=== PATIENT | male | born 1975 | race Caucasian/White ===

== ENCOUNTER 2025-08-24 04:07 | Emergency (ER) | payer BC, SELFPAY ==
[2025-08-24 04:10] VITALS: BP 170/100
[2025-08-24 06:00] VITALS: BP 145/91; BMI 31.7
[2025-08-24 06:15] LABS: Hematocrit 42.6 % (39.0-52.0); Hemoglobin 14.9 g/dL (13.0-18.0); Mean Corp Hgb Conc. 35.0 g/dL (33.0-37.0); Mean Corpuscular Volume 92.6 fL (80.0-94.0); Nucleated Red Blood Cells % 0 % (-); Platelet Count 277 10^3/uL (130-400); Red Cell Dist. Width 12.0 % (11.5-14.5)
[2025-08-24 06:23] LABS: Urine Character Clear (Clear)
[2025-08-24 06:30] LABS: ALT (SGPT) 27 U/L (0-50); AST (SGOT) 32 U/L (17-59); Albumin 5.2 g/dl (3.5-5.0); Alkaline Phosphatase 48 U/L (38-126); Blood Urea Nitrogen 14 mg/dl (9-20); Calcium 10.0 mg/dl (8.4-10.2); Carbon Dioxide 30 mmol/L (22-30); Chloride 99 mmol/L (98-107); Estimated Creatinine Clearance 125 ml/min; Glucose 100 mg/dl (70-99); Lipase 176 U/L (23-300); Potassium 4.4 mmol/L (3.5-5.1); Sodium 136 mmol/L (135-145); Total Protein 8.3 g/dl (6.3-8.2); eGFR > 60.00
[2025-08-24 07:00] VITALS: BP 152/101
[2025-08-24 07:01] LABS: Urine Red Blood Cell 0-2 /HPF (0-2); Urine White Cell 0-2 /HPF (0-5)
[2025-08-24 07:03] LABS: Urine Squamous Cell 0-2 /LPF (Few)
--- NOTE | 2025-08-24 07:50 | ED.GENMED ---
History of Present Illness
General
Chief Complaint: Flank Pain
Source: patient
Time Seen by Provider: 08/24/25 07:03
History of Present Illness
History of Present Illness:
49-year-old male with no significant past medical history presents to the emergency department for evaluation of 4 days of left-sided abdominal/flank pain described to be waxing and waning in nature, intermittently a 2 out of 10, at its worst an 8
out of 10, exacerbated by p.o. intake of solids, somewhat improved with liquids and accompanied with 1 episode of loose watery stool 2 days ago, and no diarrhea since. Patient denies any fevers, chills, rigors, urinary, chest pain or shortness of
breath. He did attempt some OTC medications including Pepto-Bismol, a digestive enzyme and some type of lbse-ouq-soezorw mint which he states did not really do anything for his symptoms. He did note some hot tea and a shower seem to help his
symptoms a little bit this morning but due to the persistent nature of the symptoms decided to come to the ER today. Social history was noncontributory.
Past History
Past History
ED Past Medical History: None
ED Past Surgical History: None
Social History
Tobacco: Non-smoker
Alcohol: Occasional
Drug: None
Personal:
Living: with family
Employment: Employed
Review of Systems
Review of Systems
All Other Systems: ROS reviewed and negative except as documented in HPI and ROS
Phy Exam
Physical Exam
Physical Exam:
GENERAL: Alert , in no apparent distress
EYE: clear conjunctiva b/l
HEAD: NCAT
ENT: o/p clr, mmm.
CARDIAC: Regular rate and rhythm .
LUNGS: Clear breath sounds bilaterally, no acute respiratory distress, no wheezes/rales/rhonchi
ABDOMEN: Soft, without focal tenderness, no r/g, no cvat
NEUROLOGICAL: Alert and oriented
SKIN: Warm and dry, skin intact.
MUSCULOSKELETAL: well perfused.
PSYCH: Normal and appropriate interaction.
Scores
Heart Failure Risk
Heart Failure Risk Score: Not Applicable
Heart Score for Chest Pain Patients
STEMI patient?: Not applicable
Withdrawal Assessment of Alcohol
Withdrawal Assessment Completed?: Not applicable
Course
Orders/Labs/Results
Orders:
Orders
08/24/25 06:03
Complete Blood Count/With Diff Urgent
Comprehensive Metabolic Panel Urgent
Lipase Urgent
Urinalysis Reflex To Culture Urgent
Date Specimen was Collected: 08/24/25
Time Specimen was Collected: 05:58
Urine Microscopic Reflex Cult Urgent
08/24/25 07:22
CT Abd/pelvis W Iv Cont Urgent
Comment:
Reason For Exam: left flank/lower abd pain, diarrhea
Abnormal Lab Results
08/24/25
06:03
RBC 4.60 L 10^6/uL
(4.70-6.10)
MCH 32.4 H pg
(27.0-31.0)
Glucose 100 H mg/dl
(70-99)
Total Bilirubin 1.4 H mg/dl
(0.2-1.3)
Total Protein 8.3 H g/dl
(6.3-8.2)
Albumin 5.2 H g/dl
(3.5-5.0)
Urine Ketones 3+ A
(Negative)
Ur Occult Blood Reflex 1+ A
(Negative)
Urine Albumin (Reflex) 1+ A
(Neg - Trace)
08/24/25 06:03
08/24/25 06:03
Vital Signs
Initial and Last Documented VS:
Initial Vital Signs
Temp Pulse Resp BP Pulse Ox
98.7 F 86 20 170/100 96
08/24/25 04:10 08/24/25 04:10 08/24/25 04:10 08/24/25 04:10 08/24/25 04:10
Last Documented Vital Signs
Temp Pulse Resp BP Pulse Ox
98.9 F 70 13 121/91 93
08/24/25 06:07 08/24/25 08:15 08/24/25 08:15 08/24/25 08:00 08/24/25 08:15
MDM/Problems Addressed
Differential Diagnosis Includes:
GERD
Gastritis
PUD
H. Pylori
Diverticulitis
Colitis
Renal/Ureteral Colic
Pancreatitis
Less concern for cholecystitis/Appendicitis
Symptoms not consistent with ACS
MDM/Problems Addressed:
49-year-old male presenting to the ER for evaluation of left-sided lower abdomen and flank pain accompanied with 1 episode of diarrhea, none since 2 days ago. Symptoms seem to be significantly exacerbated with p.o. intake of solids. Symptoms never
fully resolved. Currently a 2 out of 10 and declining anything for pain. Labs initiated in triage are reassuring, there is very slight elevation of patient's T. bili, question [place] syndrome. Urinalysis does show 3+ ketones which is likely
from lack of p.o. intake as well as 1+ microscopic hematuria. CT scan ordered. Disposition pending.
*Radiology
Radiology exam reviewed: radiology read reviewed
*Pulse Oximetry
SaO2: 98
Oxygen Mode of Delivery: Room air
Patient hypoxic: no
*Liquor Inspector Interpretation
Rate: normal
Heart Rate: 72
Rhythm: sinus
*Critical Care Note
Total Time (30-74mins, 75-104mins- exclusive of procedures): Not Applicable
Patient Management
Escalation/DeEscalation of care consider admission/obs:
CT scan without any emergent or acute findings. Hernia findings noted and discussed with patient however this is on the opposite side of the abdomen as to where patient is experiencing pain so I doubt this is the cause of his current symptoms.
Will send home with prescriptions for pantoprazole and Maalox. Information for GI provided. Encourage close follow-up with primary care provider. Patient aware of return precautions to the ER.
ED Attending Note
-
Portions of this chart may have been created with voice recognition software.� Occasional wrong word or��sound alike� substitutions may have occurred due to the inherent limitations of voice recognition software.
Discharge Plan
Departure
Patient Disposition: Home (Routine Discharge)
Date of Disposition: 08/24/25
Time of Disposition: 08:31
Patient with high blood pressure during this ER visit?: Yes
Discharge Problem:
Abdominal pain
Instructions: Abdominal pain in adults (DC)
Prescriptions:
New
pantoprazole 20 mg tablet,delayed release (DR/EC)
20 mg PO DAILY Qty: 30 0RF
alum-mag hydroxide-simeth [Maalox Maximum Strength] 400-400-40 mg/5 mL suspension
10 ml PO TID PRN (Reason: indigestion) Qty: 1000 0RF
No Action
multivitamin Tablet
1 tab PO DAILY
Referrals:
José Manuel Maynard MD [Active, Gastroenterology]
NONE,* [Family Provider, Internal Medicine]
Interventions
Interventions:
*Risk Screen - Suicide Last Done: 08/24/25 04:10
*General Assessment Last Done: 08/24/25 04:10
*Neglect/Abuse Screening Last Done: 08/24/25 04:10
*ED- Fall Risk Assessment Last Done: 08/24/25 04:36
*ED COVID-19 Vaccine History Last Done: 08/24/25 04:36
*ED Influenza Vaccine History Last Done: 08/24/25 04:36
*Nursing Disposition Last Done: 08/24/25 08:51
VI-Lomwem-Prvtolgdlx Assessment Last Done: 08/24/25 04:36
ED-Male Genitourinary Assessment Last Done: 08/24/25 04:36
Discharge Date and Time
Discharge Date/Time: 08/24/25 09:01
Print Language: LAO
[2025-08-24 07:57] VITALS: BP 143/98
[2025-08-24 08:00] VITALS: BP 121/91
== END 2025-08-24 09:01 | disposition home or self-care (01) ==
LOC: EMR 04:07
PROVIDERS: Student in an Organized Health Care Education/Training Program; EMERGENCY PHYSICIAN Student in an Organized Health Care Education/Training Program
DX: R10.32 Left lower quadrant pain (principal); R03.0 Elevated blood-pressure reading, without diagnosis of hypertension
CPT/HCPCS: 99284; 74177; 80053; 81003; 81015; 83690; 85025; Q9967